=== PATIENT | male | born 1980 | race Caucasian/White ===

== ENCOUNTER 2025-02-18 21:16 | Emergency (ER) | payer OTHER ==
[2025-02-19] MEDS: Lidocaine 1% 5 ML VIAL INJECT ONE (01:27)
[2025-02-19] MEDS: Cephalexin 500 MG Cap PO ONE (02:00)
[2025-02-19] MEDS: Sulfamethoxazole/Trimethoprim 800-160 MG Tab PO ONE (02:00)
== END 2025-02-19 02:12 | disposition home or self-care (01) ==
LOC: MW.ED 21:16
DX: S61.213A Laceration without foreign body of left middle finger without damage to nail, initial encounter (principal); F17.210 Nicotine dependence, cigarettes, uncomplicated; Z79.899 Other long term (current) drug therapy; W23.1XXA Caught, crushed, jammed, or pinched between stationary objects, initial encounter
CPT/HCPCS: 12002; 73140; 99283; A9270; J2003